=== PATIENT | male | born 1970 | race Caucasian/White ===

== ENCOUNTER 2024-12-14 16:45 | Emergency (ER) | payer OTHER ==
[2024-12-14] MEDS: Lidocaine/Epineph/Tetracaine 3 ML Syringe TOP ONE (17:26)
== END 2024-12-14 18:13 | disposition home or self-care (01) ==
LOC: JP.ED 16:45
DX: S01.01XA Laceration without foreign body of scalp, initial encounter (principal); Z79.890 Hormone replacement therapy; Z79.899 Other long term (current) drug therapy; W22.8XXA Striking against or struck by other objects, initial encounter; Y93.89 Activity, other specified
CPT/HCPCS: 12002; 99282; A9270